=== PATIENT | female | born 1985 | race African-American/Black ===

== ENCOUNTER 2017-08-31 23:31 | Emergency (ER) | payer SELFPAY ==
[~2017-08-31] VITALS: Ht 157.5 cm; Wt 55.0 kg
[2017-09-01] MEDS ORDERED: SODIUM CHLORIDE 0.9% 1,000 ML IV ONE (00:06)
[2017-09-01 00:52] LABS: EOSINOPHILS % 0.9 % (0.0-5.0); HEMATOCRIT. 38.4 % (36.0-48.0); LYMPHOCYTES % 34.8 % (20.0-50.0); MEAN CORPUSCULAR HEMOGLOBIN 31.8 pg (28.0-32.0); MEAN CORPUSCULAR VOLUME 94.1 fL (81.0-99.0); MONOCYTES % 4.8 % (2.0-8.0); NEUTROPHILS % 58.5 % (40.0-76.0); PLATELET 231 x1000/uL (130-400); RED BLOOD CELL COUNT 4.08 mill/uL (4.2-5.4)
[2017-09-01 01:00] LABS: CHLORIDE 110 mEq/L (98-107)
[2017-09-01 01:01] LABS: PROTHROMBIN TIME 10.5 sec (9.4-11.6)
[2017-09-01 01:04] LABS: ETHANOL BLOOD 269 mg/dL
[2017-09-01 01:07] LABS: AMMONIA 18 uMol/L (<32)
[2017-09-01 01:11] LABS: B-HCG QUANTITATIVE < 1 mIU/mL (<3)
[2017-09-01] MEDS ORDERED: SODIUM CHLORIDE 0.9% 1000ML BAG (SEPSIS BOLUS) IV ONE (01:30)
[2017-09-01 04:30] VITALS: BP 103/65
== END 2017-09-01 04:54 | disposition home or self-care (01) ==
LOC: ER 23:31
DX: N83.201 Unspecified ovarian cyst, right side (principal); E87.2 Acidosis; T51.0X1A Toxic effect of ethanol, accidental (unintentional), initial encounter; Y92.89 Other specified places as the place of occurrence of the external cause
CPT/HCPCS: 36415; 70450; 71045; 74176; 80053; 82140; 82962; 83605; 83690; 83880; 84484; 84702; 85025; 85610; 96360; 99285; G0482; J7030